=== PATIENT | female | born 1990 | race Hispanic/Latino ===

== ENCOUNTER 2021-04-05 09:34 | Emergency (ER) | payer OTHER ==
[~2021-04-05] VITALS: Ht 170.2 cm; Wt 59.0 kg
[2021-04-05 10:04] VITALS: BP 115/71
[2021-04-05 10:42] LABS: APPEARANCE,URINE Cloudy (CLEAR); BILIRUBIN,URINE Negative (NEGATIVE); COLOR,URINE Yellow (YELLOW); GLUCOSE, URINE (UA) Negative (NEGATIVE); KETONES,URINE >=80 mg/dL (NEGATIVE); LEUKOCYTE ESTERASE ,URINE Negative (NEGATIVE); NITRATE,URINE Negative (NEGATIVE); OCCULT BLOOD,URINE Negative (NEGATIVE); PH,URINE 5.5 (5.0-8.0); PROTEIN,URINE POS 1+ mg/dL (NEGATIVE)
[2021-04-05 11:03] LABS: BACTERIA,URINE Few /HPF (None Seen); MUCUS,URINE Moderate LPF (None Seen); RBC,URINE 0-1 /HPF (0-1); SQUAMOUS EPITHELIAL CELL,UR Many /HPF (0-2)
[2021-04-05 11:23] VITALS: BP 108/79
[2021-04-05] MEDS ORDERED: AZIT500T2 PO (11:27)
== END 2021-04-05 11:47 | disposition home or self-care (01) ==
LOC: EDH 09:34
DX: U07.1 COVID-19 (principal)
CPT/HCPCS: 81001; 81025; 87077; 87088; 87186; 87635; 87804 ×2; 99283; C9803